=== PATIENT | female | born 1960 | race Hispanic/Latino ===

== ENCOUNTER → 2017-05-18 | Day surgery (SDC) | payer BC ==
[2017-05-16 15:59] LABS: ANION GAP 13.7 mmol/L (8-16); BLOOD UREA NITROGEN 9 mg/dL (7-26); BUN/CREATININE RATIO 12 (6-25); CALCIUM 9.6 mg/dL (8.4-10.2); CARBON DIOXIDE 25 mmol/L (22-29); CHLORIDE 104 mmol/L (98-107); CREATININE, SERUM 0.78 mg/dL (0.57-1.11); EST GLOMERULAR FILTRATION RATE > 60 ML/MIN (60-); GLUCOSE 88 mg/dL (74-118); POTASSIUM 3.7 mmol/L (3.5-5.1); SODIUM 139 mmol/L (136-145)
[~2017-05-18] MED LIST: BACITRACIN 50,000 UNIT VIAL ONE; BUPIVACAINE HCL 0.5% INJ 30 ML VIAL INJ ONE; CEFAZOLIN SOD 1 GM/NS 50ML 50 ML IV ONE; CLINDAMYCIN HC300 MG PO; CRESTOR PO; CRESTOR20 MG PO; DEXAMETHASONE SOD PHOS INJ 4 MG/ML VIAL ONE; DIOVAN160 MG PO; FENTANYL CITRATE/PF 100MCG/2 ML INJ ONE; KETOROLAC TROMETHAMINE 30 MG/ML VIAL ONE; LIDOCAINE HCL 2% LOCAL INJ 5 ML SDV VIAL INJ ONE; LOSARTAN-HCTZ1 EACH PO; METFORMIN HCL500 MG PO; MIDAZOLAM HCL 2 MG/2 ML VIAL ONE; NEOSTIGMINE 1 MG/ML 10ML VIAL ONE; ONDANSETRON HCL INJ 2 MG/ML VIAL ONE; PROPOFOL IV EMULSION 10 MG/ML 20 ML VIAL ONE; SEVOFLURANE INHAL SOLN 250 ML PEN BTL ONE
--- NOTE | 2017-05-18 10:36 | Operative Report ---
DATE OF PROCEDURE: May 18, 2017 PREOPERATIVE DIAGNOSIS: Left 4th metatarsal fracture. POSTOPERATIVE DIAGNOSIS: Left 4th metatarsal fracture. PLANNED PROCEDURE: Left 4th metatarsal open reduction and internal fixation. DEPUTY REGISTER OF DEEDS: Tammy Franks DPM ANESTHESIA: General with a postoperative block consisting of 10 mL of 0.5% Marcaine plain mixed with 1 mL of dexamethasone phosphate. HEMOSTASIS: Pneumatic ankle tourniquet set at 250 mmHg for a total time of approximately 30 minutes. MATERIALS 1. Synthes straight 5-hole plate. 2. Four cortical bone screws, one measuring 2.0 x 10 mm and three measuring 2.0 x 12 mm. 3. 3-0 Vicryl. 4. 4-0 Prolene. ESTIMATED BLOOD LOSS: Less than 10 mL. PROCEDURE NOTE: The patient was brought into the operating room and placed on the operating table in the supine position. General anesthesia was initiated at this time. A well-padded pneumatic tourniquet was placed about the patient's left ankle. The left foot and ankle were than scrubbed, prepped and draped in the usual aseptic manner. The left foot and ankle were then exsanguinated with an Esmarch bandage. The pneumatic ankle tourniquet was inflated to 250 mmHg for a total time of approximately 30 minutes. Attention was directed to the dorsal aspect of the patient's right 4th metatarsal shaft. Utilizing a #15 blade, a 5-cm linear incision was made directly over the fracture site. The incision was carried through the subcutaneous tissue, them from deeper underlying structures. All vital neurovascular structures were identified and retracted medially and laterally. All bleeders were cauterized or ligated as deemed necessary. At this time, the fracture site was easily identified, and there was noted to be slight bony callous formation. Upon debriding the bony callus formation, there was noted to be partial healing of the fracture site in an angulated position, so a decision was made to reangulate by utilizing an osteotome and mallet and performing an osteotomy at the fracture site. Utilizing techniques of AO fixation, the plate was fastened to the proximal fragment. Then the distal fragment was distracted and reduced to anatomic alignment and temporarily fixated. Utilizing intraoperative fluoroscopy, anatomic angulation was noted to be appropriate, and the remainder of the screws were placed. The fixation site was stable. The bony callus was debrided utilizing a rongeur. The wound was then flushed with copious amounts of sterile saline. Capsule and deep tissue were reapproximated with 3-0 Vicryl, the subcutaneous tissue with 3-0 Vicryl, and the skin was closed using a running interlocking stitch with 4-0 Prolene. The incision site was dressed with Adaptic, 4 x 4's, Kerlix, 4-inch Webril, 4 x 30 posterior splint, 4-inch Brian wrap and 6-inch Brian wrap. The patient tolerated the procedure and anesthesia well. Patient was transferred to the postoperative recovery unit with vital signs stable and vascular status intact. The patient was monitored there for a short period of time before being sent home with the following written and oral instructions: 1. Keep the dressing clean, dry and intact. 2. The patient is to remain nonweightbearing to the left lower extremity and to avoid any ambulation until being seen in the office. 3. The patient was given the office number and instructed to contact us if any problems should arise. Job#: [id number]
== END | disposition home or self-care (01) ==
LOC: OR 05:31
PROVIDERS: ATTEND Podiatrist Foot & Ankle Surgery
DX: S92.342A Displaced fracture of fourth metatarsal bone, left foot, initial encounter for closed fracture (principal); E11.9 Type 2 diabetes mellitus without complications; I10 Essential (primary) hypertension; E66.01 Morbid (severe) obesity due to excess calories; Z01.810 Encounter for preprocedural cardiovascular examination; Z01.812 Encounter for preprocedural laboratory examination
CPT/HCPCS: 28485; 36415 ×2; 80048; 82948; 93005; J1100; J1885; J2001; J2250; J2405; J2710

== ENCOUNTER → 2017-09-13 | Outpatient (CLI) | payer BC ==
[~2017-09-13] MED LIST changes: -BACITRACIN 50,000 UNIT VIAL ONE; -BUPIVACAINE HCL 0.5% INJ 30 ML VIAL INJ ONE; -CEFAZOLIN SOD 1 GM/NS 50ML 50 ML IV ONE; -DEXAMETHASONE SOD PHOS INJ 4 MG/ML VIAL ONE; -FENTANYL CITRATE/PF 100MCG/2 ML INJ ONE; -KETOROLAC TROMETHAMINE 30 MG/ML VIAL ONE; -LIDOCAINE HCL 2% LOCAL INJ 5 ML SDV VIAL INJ ONE; -MIDAZOLAM HCL 2 MG/2 ML VIAL ONE; -NEOSTIGMINE 1 MG/ML 10ML VIAL ONE; -ONDANSETRON HCL INJ 2 MG/ML VIAL ONE; -PROPOFOL IV EMULSION 10 MG/ML 20 ML VIAL ONE; -SEVOFLURANE INHAL SOLN 250 ML PEN BTL ONE
--- NOTE | 2017-09-13 10:38 | Diagnostic Imaging Report ---
EXAM: DXA BONE DENSITY INDICATIONS: Postmenopausal screening COMPARISON: None. FINDINGS: Proximal left femur bone mineral density (BMD) (g/cm2):1.046 Femur T-score (standard deviation relative to young adult mean BMD): 0.6 Femur Z-score (standard deviation relative to age-matched control group):1.5 Lumbar bone mineral density (BMD) (g/cm2):1.005 Lumbar T-score (standard deviation relative to young adult mean BMD): -0.4 Lumbar Z-score (standard deviation relative to age-matched control group):1 CONCLUSION: WHO bone mineral classification: Normal World Health Organization Classification: *The Z-score is provided for informational purposes. The T-score is preferable for clinical decisions. RECOMMENDATIONS: Normal \T\ Osteopenia:Calcium supplementation, daily multiple vitamins, and adequate exercise as preventive measures against osteoporosis. Osteoporosis \T\ Severe Osteoporosis:In addition to the above, pharmacologic therapy. Dictated by: Loyd Power M.D. on 09/13/2017 at 10:40 Electronically approved by: Loyd Power M.D. on 09/13/2017 at 10:40
--- NOTE | 2017-09-16 08:58 | Diagnostic Imaging Report ---
#[id number] - MGSCRBIL #BILATERAL DIGITAL SCREENING MAMMOGRAM WITH CAD: 09/13/2017 CLINICAL: Routine screening. Comparison is made to exams dated: 06/15/2016 mammogram and 08/29/2014 mammogram - [facility]. Current study contains 4 films. There are scattered fibroglandular elements in both breasts. Current study was also evaluated with a Computer Aided Detection (CAD) system. There are benign calcifications in both breasts. There also are benign lymph nodes in both breasts. Stable thin wall cyst in the right breast. There is vascular calcification in both breasts. No significant masses, calcifications, or other findings are seen in either breast. There has been no significant interval change. IMPRESSION: BENIGN There is no mammographic evidence of malignancy. A 1 year screening mammogram is recommended. The patient will be notified by letter of the results. Duane Carrillo Jr., D.O. cw/:09/15/2017 12:06:56 Reconstructive Surgeon: Kiya BEAL(Andre)(M), [facility] letter sent: Compared to Prior B9 Mammogram BI-RADS: 2 Benign
== END ==
LOC: MAMMO 08:59
PROVIDERS: ATTEND Family Medicine
DX: Z12.31 Encounter for screening mammogram for malignant neoplasm of breast (principal); Z13.820 Encounter for screening for osteoporosis
CPT/HCPCS: 77067; 77080

== ENCOUNTER → 2019-07-16 | Outpatient (CLI) | payer OTHER ==
--- NOTE | 2019-07-17 08:26 | Diagnostic Imaging Report ---
Exam: Bone mineral density study. History: Osteoporosis screening Comparison: 09/13/2017 Discussion: Evaluation of the left hip and lumbar spine was performed utilizing DEXA Hologic bone densitometer. The study is technically adequate. The patient's fracture risk is compared to an age-matched control. The patient denies prior surgery/fracture of the spine, hips or forearm. Left hip femoral neck bone mineral density: 0.962 g/cm2, T-score is 0.7, Z-score is 2.0. Left hip total bone mineral density: 1.036 g/cm2, T-score is 0.6, Z-score is 1.5. Left hip bone mineral density is decreased 0.9% from the prior examination from 09/13/2017. Lumbar spine total bone mineral density: 1.011 gm/cm2, T-score is -0.3, Z-score is 1.2. Lumbar spine bone mineral density is increased 0.6% from the prior examination from 09/13/2017. Impression: 1. Bone mineralization by WHO Classification of the left hip is normal, the fracture risk is not increased. 2. Bone mineralization by WHO Classification of the lumbar spine is normal, the fracture risk is not increased. Signed by: Dr. Howard Salinas MD on 07/17/2019 8:24 AM
== END ==
LOC: MAMMO 07:56
PROVIDERS: ATTEND Family Medicine
DX: N61.1 Abscess of the breast and nipple (principal); Z13.820 Encounter for screening for osteoporosis
CPT/HCPCS: 77066; 77080

== ENCOUNTER → 2020-11-26 | Outpatient (CLI) | payer OTHER | LOC: MAMMO 11:24 | PROVIDERS: ATTEND Family Medicine | DX: Z12.31 Encounter for screening mammogram for malignant neoplasm of breast (principal); Z13.820 Encounter for screening for osteoporosis | CPT/HCPCS: 77067; 77080 ==

== ENCOUNTER → 2021-09-25 | Day surgery (SDC) | payer MEDICARE, OTHER ==
[2021-09-23 09:03] LABS: BASOPHILS % 0.6 % (0.0-1.0); EOSINOPHILS # (AUTO) 0.1 (0.0-0.4); EOSINOPHILS % 1.3 % (0.0-6.0); HEMATOCRIT 46.1 % (34.2-44.1); HEMOGLOBIN 14.5 g/dL (12.0-16.0); LYMPHOCYTES # (AUTO) 1.5 (1.0-3.2); LYMPHOCYTES % 22.1 % (18.0-39.1); MEAN CORPUSCULAR HEMOGLOBIN 31.1 pg (28-32); MEAN CORPUSCULAR HGB CONC 31.5 g/dL (31-35); MEAN CORPUSCULAR VOLUME 98.9 fL (81-99); MONOCYTES # (AUTO) 0.7 (0.2-0.8); MONOCYTES % 10.3 % (4.4-11.3); NEUTROPHILS # (AUTO) 4.5 (2.1-6.9); NEUTROPHILS % 65.4 % (38.7-80.0); PLATELET COUNT 192 x10e3/uL (140-360); RED BLOOD COUNT 4.66 x10e6/uL (3.6-5.1); RED CELL DISTRIBUTION WIDTH 13.2 % (11.7-14.4)
[2021-09-23 09:19] LABS: ALBUMIN 3.9 g/dL (3.5-5.0); ALBUMIN/GLOBULIN RATIO 0.9 (0.8-2.0); ANION GAP 12.5 mmol/L (8-16); CALCIUM 9.2 mg/dL (8.4-10.2); CREATININE, SERUM 0.71 mg/dL (0.57-1.11); POTASSIUM 3.5 mmol/L (3.5-5.1)
[~2021-09-25] MED LIST changes: +AUGMENTIN 500-1 EACH PO; +DEXAMETHASONE SOD PHOS INJ 4 MG/ML SDV ONE; +FENTANYL CITRATE/PF 100MCG/2 ML INJ ONE; +HYDROCODONE/APAP 7.5MG-325MG 1 EA TAB ONE; +JARDIANCE10 MG PO; +LIDOCAINE HCL 2% LOCAL INJ 5 ML SDV VIAL INJ ONE; +MIDAZOLAM HCL 2 MG/2 ML VIAL ONE; +ONDANSETRON HCL INJ 2MG/ML 2ML 2 MG/ML VIAL ONE; +POVIDONE IODINE 0.05% 0.05 % ML PO ONE; +PROPOFOL IV EMULSION 10 MG/ML 20 ML VIAL ONE; +SEVOFLURANE INHAL SOLN 250 ML PEN BTL ONE
[2021-09-25 14:20] VITALS: BP 121/73
== END | disposition home or self-care (01) ==
LOC: OR 08:08
PROVIDERS: ATTEND Surgery
DX: N61.1 Abscess of the breast and nipple (principal); N63.20 Unspecified lump in the left breast, unspecified quadrant; E11.9 Type 2 diabetes mellitus without complications; K21.9 Gastro-esophageal reflux disease without esophagitis; I10 Essential (primary) hypertension; E78.5 Hyperlipidemia, unspecified; I45.10 Unspecified right bundle-branch block; Z01.810 Encounter for preprocedural cardiovascular examination; Z01.812 Encounter for preprocedural laboratory examination; Z01.818 Encounter for other preprocedural examination; Z20.822 Contact with and (suspected) exposure to COVID-19; Z79.84 Long term (current) use of oral hypoglycemic drugs; Z79.899 Other long term (current) drug therapy; Z86.16 Personal history of COVID-19
CPT/HCPCS: 10060; 19301; 36415 ×2; 71046; 80053; 82948; 85025; 87071; 87075; 87205; 88304; 93005; J1100; J2001; J2250; J2405; J2704; J3010; U0002